=== PATIENT | female | born 1955 | race Hispanic/Latino ===

== ENCOUNTER 2017-07-16 08:42 | Outpatient (CLI) | payer BC ==
--- NOTE | 2017-07-16 11:23 | XRay Report ---
Single view abdomen: No bowel distention or wall thickening. No radiopaque calculus or abnormal calcification. Left femoral vascular stent. Stable inferior vena cava filter. Impression: No bowel distention.
== END 2017-07-16 08:43 | disposition home or self-care (01) ==
LOC: XRAY 08:42
PROVIDERS: ATTEND Radiology Diagnostic Radiology
DX: I87.2 Venous insufficiency (chronic) (peripheral) (principal); I82.592 Chronic embolism and thrombosis of other specified deep vein of left lower extremity; I87.1 Compression of vein
CPT/HCPCS: 74000

== ENCOUNTER 2017-08-23 18:06 | Emergency (ER) | payer BC ==
[2017-08-23 18:52] LABS: Hematocrit 43.7 % (30.3-42.9); Hemoglobin 14.3 gm/dl (10.1-14.3); Mean Corpuscular HGB Conc 33 % (30-34); Mean Corpuscular Hemoglobin 30 pg (28-32); Mean Corpuscular Volume 91 fl (79-97); Platelet Count 201 K/mm3 (140-440); Red Blood Count 4.82 M/mm3 (3.65-5.03); Red Cell Distribution Width 14.3 % (13.2-15.2); White Blood Count 9.4 K/mm3 (4.5-11.0)
[2017-08-23 19:07] LABS: INR 1.09 (0.87-1.13)
[2017-08-23 19:13] LABS: Anion Gap 20 mmol/L; BUN/Creatinine Ratio 18; Blood Urea Nitrogen 7 mg/dL (7-17); Calcium 9.5 mg/dL (8.4-10.2); Carbon Dioxide 23 mmol/L (22-30); Chloride 97.3 mmol/L (98-107); Glucose 163 mg/dL (65-100); Sodium 136 mmol/L (137-145)
[2017-08-23 21:11] LABS: Bilirubin,Urine NEG (Negative); Blood,Urine NEG (Negative); Ketones,Urine NEG (Negative); Leukocyte Esterase,Urine NEG (Negative); Nitrite,Urine NEG (Negative); Protein,Urine <15 mg/dL mg/dL (Negative); Urobilinogen,Urine < 2.0 mg/dL (<2.0); WBC,Urine < 1.0 /HPF (0.0-6.0)
[2017-08-24] MEDS ORDERED: DILAUDID IV ONE (01:34)
--- NOTE | 2017-08-24 01:54 | Emergency Department Report ---
HPI - General Chief Complaint: Extremity Injury, Lower Time Seen by Provider: 08/24/17 01:23 - HPI HPI: This is a 61-year-old female presents to the emergency department with complaint of left-sided groin pain that has been going on for the past week. This patient has a history of DVT, she went into see her vascular physician, Dr. Pierce, and had an ultrasound that was read as normal and then she was referred to see her primary care physician. She has an appointment coming this Saturday but she says that the pain has been getting progressively worse. She tried a tramadol for her pain without any relief. She has a past medical history of avw-[id number] diabetes, hypertension, peripheral artery disease, neuropathy and she has a [place] filter in place. No recent travel or sick contacts at home. She denies any trouble with bowel or bladder, dysuria , vaginal bleeding or discharge. ED Past Medical Hx - Past Medical History Hx Hypertension: Yes Hx Diabetes: Yes (II) Additional medical history: dvt, pe, konstantin filter, PAD,insomia,allergies, neuropathy,elevated cholesterol - Surgical History Additional Surgical History: cataracts, bilat leg vascular surgery. - Social History Smoking Status: Never Smoker Substance Use Type: None - Medications Home Medications: Home Medications Medication Instructions Recorded Confirmed Last Taken Type Canagliflozin (Nf) [Invokana] 100 mg PO DAILY 09/04/15 02/21/16 02/20/16 History 100mg Colesevelam [Welchol] 625 mg PO DAILY 09/04/15 02/21/16 02/20/16 History 625mg Escitalopram [Lexapro] 10 mg PO DAILY 09/04/15 02/21/16 02/20/16 History 10mg Loratadine [Claritin] 10 mg PO DAILY 09/04/15 02/21/16 02/20/16 History 10mg Metformin HCl [Glucophage] 1,000 mg PO BID 09/04/15 02/21/16 02/20/16 History 1000mg Pravastatin (Nf) 40 mg PO DAILY 09/04/15 02/21/16 02/20/16 History 40mg Ramipril 5 mg PO QDAY 09/04/15 02/21/16 02/21/16 05:00 History 5mg Vitamin B Complex Vit C No.4 150 mg PO 2XWHS 09/04/15 02/21/16 02/20/16 History [Super B Complex] 150mg Warfarin [Coumadin] 7.5 mg PO QDAY 09/04/15 02/21/16 02/18/16 History 7.5mg Zolpidem [Ambien] 15 mg PO QHS 09/04/15 02/21/16 02/20/16 History 15mg Apixaban [Eliquis] 5 mg PO BID #60 tablet 02/21/16 Unknown Rx Melatonin 10 mg Tablet 10 mg PO QHS 02/21/16 02/21/16 02/20/16 History 10mg HYDROcodone/APAP 5-325 [[place] 1 each PO Q6HR PRN #12 tablet 08/24/17 Unknown Rx 5/325] ED Review of Systems ROS: Stated complaint: PELVIC PAIN Other details as noted in HPI Comment: All other systems reviewed and negative Constitutional: denies: chills, fever Eyes: denies: eye pain, eye discharge, vision change ENT: denies: ear pain, throat pain Respiratory: denies: cough, shortness of breath, wheezing Cardiovascular: denies: chest pain, palpitations Gastrointestinal: denies: abdominal pain, nausea Genitourinary: other (left groin pain). denies: dysuria, discharge Musculoskeletal: denies: back pain, joint swelling, arthralgia Skin: denies: rash, lesions Neurological: denies: headache, weakness, paresthesias Physical Exam - Physical Exam Vital Signs: Vital Signs 08/23/17 18:23 Temperature 98.7 F Pulse Rate 64 Respiratory 18 Rate Blood Pressure 141/54 O2 Sat by Pulse 95 Oximetry Physical Exam: GENERAL: The patient is well-developed well-nourished. HENT: Normocephalic. Atraumatic. Patient has moist mucous membranes. EYES: Extraocular motions are intact. Pupils equal reactive to light bilaterally. NECK: Supple. Trachea is midline. CHEST/LUNGS: Clear to auscultation. There is no respiratory distress noted. HEART/CARDIOVASCULAR: Regular. There is no tachycardia. There is no gallop rub or murmur. ABDOMEN: Abdomen is soft, nontender. Patient has normal bowel sounds. There is no abdominal distention. Obese habitus. There is some reproducible tenderness palpation along the left inguinal groin but there is no palpable hernia or any mass. SKIN: Skin is warm and dry. NEURO: The patient is awake, alert, and oriented. The patient is cooperative. The patient has no focal neurologic deficits. The patient has normal speech. MUSCULOSKELETAL: There is no tenderness or deformity. There is no limitation range of motion. There is no evidence of acute injury. ED Course Vital Signs 08/23/17 18:23 Temperature 98.7 F Pulse Rate 64 Respiratory 18 Rate Blood Pressure 141/54 O2 Sat by Pulse 95 Oximetry ED Medical Decision Making - Lab Data Result diagrams: 08/23/17 18:35 08/23/17 18:35 - Radiology Data Radiology results: report reviewed EXAM: CT ABDOMEN PELVIS W CON HISTORY: pelvic pain TECHNIQUE: Standard enhanced CT of the abdomen and pelvis. Delayed imaging through the kidneys and bladder was obtained. Coronal and sagittal reconstruction was also performed. Contrast: Intravenous contrast given. PRIORS: None. FINDINGS: Within the abdomen, the liver is diffusely decreased in density consistent with moderate fatty liver. The spleen, pancreas, gallbladder, adrenal glands, and right kidney are unremarkable. A subtle hypodensity in the upper pole left kidney is too small to characterize but statistically, likely a cyst. No evidence for retroperitoneal or pelvic lymphadenopathy is seen. The bowel loops have normal caliber. No soft tissue mass, fluid collection, inflammatory change, or free air is seen within the abdomen or pelvis. The appendix is normal. An inferior vena cava filter is present to the right of L2-L3. There is also a venous stent in place in the left common iliac vein. Within the pelvis, the bladder is unremarkable. The uterus is normal. Bilateral tubal ligation clips are in place. No evidence for mass or lymphadenopathy is seen in the pelvis. Small bilateral inguinal hernias are noted containing only fat. Images through the upper abdomen include the lung bases which demonstrates mild linear atelectasis or scarring in the left base posteriorly. Bony structures show diffuse degenerative disc narrowing throughout the lower thoracic spine. There is also moderate narrowing L2-L3 disc level. IMPRESSION: 1. no acute intra-abdominal process noted. 2. Moderate fatty liver 3. Subtle hypodensity in the left kidney, statistically likely a cyst. Transcribed By: [facility] Dictated By: YSABEL JAIN MD Electronically Authenticated By: YSABEL JAIN MD Signed Date/Time: 08/24/17 0018 - Medical Decision Making This is a 61-year-old female who presents with a few days of pain to the left groin. She thought it might be related to a DVT but not only is she compliant with taking her Eliquis, but she also had a negative ultrasound done with Dr. Pierce. She is supposed to follow up with her PCP but was having issues with pain and could not make it 3 more days. She was given some pain medication here. Labs are mostly unremarkable. A CT of the abdomen and pelvis was done that shows some fatty liver disease but otherwise no acute intra-abdominal or pelvic process. Vital signs stable including being afebrile. She appears safe for discharge home at this time. She will stop taking the tramadol and I will write her for a different pain medication. She will follow-up with her PCP on Saturday as previously scheduled. She will return to the ER with any worsening of her symptoms or any acute distress. Discharge instructions were given while the patient was in the emergency department and all questions answered. - Differential Diagnosis hernia, DVT, abscess, neuropathy Critical Care Time: No Critical care attestation.: If time is entered above; I have spent that time in minutes in the direct care of this critically ill patient, excluding procedure time. ED Disposition Clinical Impression: Left groin pain, Fatty liver disease, nonalcoholic Disposition: - TO HOME OR SELFCARE Is pt being admited?: No Condition: Stable Additional Instructions: Please follow-up with your primary care physician on Saturday as previously planned. Return to the emergency Department with any worsening of your symptoms or any acute distress. You have been prescribed a medication that is sedating and therefore should not be taken prior to driving, working, and responsible for children and in no way should be mixed with alcohol of any quantity. Prescriptions: HYDROcodone/APAP 5-325 [[place] 5/325] 1 each PO Q6HR PRN #12 tablet PRN Reason: Pain Referrals: PRIMARY CARE, [Primary Care Provider] - [facility] Time of Disposition: 04:32
[2017-08-24 03:56] LABS: INR 1.12 (0.87-1.13)
[2017-08-24 03:57] LABS: Partial Thromboplastin Time 28.9 Sec. (24.2-36.6)
--- NOTE | 2017-08-24 04:20 | Cat Scan Report ---
FINAL REPORT EXAM: CT ABDOMEN PELVIS W CON HISTORY: pelvic pain TECHNIQUE: Standard enhanced CT of the abdomen and pelvis. Delayed imaging through the kidneys and bladder was obtained. Coronal and sagittal reconstruction was also performed. Contrast: Intravenous contrast given. PRIORS: None. FINDINGS: Within the abdomen, the liver is diffusely decreased in density consistent with moderate fatty liver. The spleen, pancreas, gallbladder, adrenal glands, and right kidney are unremarkable. A subtle hypodensity in the upper pole left kidney is too small to characterize but statistically, likely a cyst. No evidence for retroperitoneal or pelvic lymphadenopathy is seen. The bowel loops have normal caliber. No soft tissue mass, fluid collection, inflammatory change, or free air is seen within the abdomen or pelvis. The appendix is normal. An inferior vena cava filter is present to the right of L2-L3. There is also a venous stent in place in the left common iliac vein. Within the pelvis, the bladder is unremarkable. The uterus is normal. Bilateral tubal ligation clips are in place. No evidence for mass or lymphadenopathy is seen in the pelvis. Small bilateral inguinal hernias are noted containing only fat. Images through the upper abdomen include the lung bases which demonstrates mild linear atelectasis or scarring in the left base posteriorly. Bony structures show diffuse degenerative disc narrowing throughout the lower thoracic spine. There is also moderate narrowing L2-L3 disc level. IMPRESSION: 1. no acute intra-abdominal process noted. 2. Moderate fatty liver 3. Subtle hypodensity in the left kidney, statistically likely a cyst.
[2017-08-24 04:35] VITALS: BP 125/53
== END 2017-08-24 04:42 | disposition home or self-care (01) ==
LOC: ED 18:06
DX: K76.0 Fatty (change of) liver, not elsewhere classified (principal); I10 Essential (primary) hypertension; E11.40 Type 2 diabetes mellitus with diabetic neuropathy, unspecified; Z79.01 Long term (current) use of anticoagulants
CPT/HCPCS: 36415; 74177; 80048; 81001; 85027; 85610; 85730; 96374; 99284; J1170; Q9967